=== PATIENT | female | born 1955 | race Two or more races ===

== ENCOUNTER 2023-07-25 07:49 | Day surgery (SDC) | payer OTHER | END 2023-07-25 13:40 | disposition home or self-care (01) | LOC: AMB-ENDOS 07:49 | PROVIDERS: ATTEND Surgery | DX: K29.70 Gastritis, unspecified, without bleeding (principal); B96.81 Helicobacter pylori [H. pylori] as the cause of diseases classified elsewhere; K92.1 Melena; R19.4 Change in bowel habit; K62.89 Other specified diseases of anus and rectum; K21.9 Gastro-esophageal reflux disease without esophagitis; K44.9 Diaphragmatic hernia without obstruction or gangrene; K29.80 Duodenitis without bleeding; K64.8 Other hemorrhoids; R14.0 Abdominal distension (gaseous) ==